=== PATIENT | male | born 1980 | race Caucasian/White ===

== ENCOUNTER 2016-07-08 10:38 | Emergency (ER) | payer OTHER ==
[~2016-07-08] VITALS: Ht 170.2 cm; Wt 66.7 kg
[2016-07-08 10:41] VITALS: BP 130/70
--- NOTE | 2016-07-08 11:03 | NUR ---
Patient taken from ED lobby to XRAY via wheelchair by tech.
--- NOTE | 2016-07-08 11:38 | NUR ---
Patient ambulated to [facility]2 to be evaluated as fast track by Dr. Howard.
--- NOTE | 2016-07-08 11:52 | NUR ---
Dr. Howard evaluating patient in OF2.
--- NOTE | 2016-07-08 11:55 | NUR ---
PATIENT COMFORTABLE SITTING ON THE CHAIR O.F
--- NOTE | 2016-07-08 12:05 | NUR ---
EKG completed by tech in triage room.
--- NOTE | 2016-07-08 12:12 | NUR ---
Dr. Howard re-evaluating patient at bedside.
--- NOTE | 2016-07-08 12:15 | NUR ---
DR. BENSON TALKING TO PATIENT REGARDING RESULTS OF CXR AND D/C INSTRUCTIONS.
[2016-07-08 12:30] VITALS: BP 118/73
--- NOTE | 2016-07-08 12:30 | NUR ---
Patient discharged with v/s stable. Written and verbal after care instructions given and explained. Patient verbalized understanding. Ambulatory with steady gait. All questions addressed prior to discharge. Advised to follow up with PMD.
== END 2016-07-08 12:30 | disposition home or self-care (01) ==
LOC: MED 10:38
DX: R59.1 Generalized enlarged lymph nodes (principal); R07.89 Other chest pain; F41.9 Anxiety disorder, unspecified; F17.210 Nicotine dependence, cigarettes, uncomplicated

== ENCOUNTER 2016-08-30 14:52 | Emergency (ER) | payer OTHER ==
[~2016-08-30] VITALS: Ht 170.2 cm; Wt 67.2 kg
[2016-08-30 15:07] VITALS: BP 129/49
--- NOTE | 2016-08-30 19:34 | NUR ---
PT TAKEN TO BED 8
--- NOTE | 2016-08-30 19:36 | NUR ---
35 Y/O M W/C/O PLANTAR PAIN X 1 MONTH, CLEAN APPEARING WOUNDS, NO DRAINAGE. PT STATES WAS TESTED FOR DM RECENTLY BUT WAS TOLD BY PMD RESULTS WERE NORMAL. PT HAS A COPY OF RESULTS. EUGENIE LOMAX NOTIFIED.
--- NOTE | 2016-08-30 20:00 | NUR ---
PT RESTING IN BED AWATING FOR MD, NO S/S OF DISTRESS NOTED AT THE MOMENT.
--- NOTE | 2016-08-30 20:23 | NUR ---
Dr. Rainey evaluating patient at bedside.
[2016-08-30 20:55] VITALS: BP 110/67
--- NOTE | 2016-08-30 20:55 | NUR ---
Patient discharged with v/s stable. Written and verbal after care instructions given and explained. Patient alert, oriented and verbalized understanding of instructions. Ambulatory with to car. All questions addressed prior to discharge. ID band removed. Patient advised to follow up with PMD IN 1 WK OR RETURN TO ER IF CONDITION WORSENS. Rx of MOTRIN given. Patient educated on indication of medication including possible reaction and side effects. Opportunity to ask questions provided and answered.
== END 2016-08-30 20:55 | disposition home or self-care (01) ==
LOC: MED 14:52
DX: M79.671 Pain in right foot (principal); M79.672 Pain in left foot; L40.9 Psoriasis, unspecified
CPT/HCPCS: 73630; 99284

== ENCOUNTER 2018-01-22 18:56 | Emergency (ER) | payer OTHER ==
[~2018-01-22] VITALS: Ht 170.2 cm; Wt 69.9 kg
[2018-01-22 19:05] VITALS: BP 134/73
[2018-01-22 21:04] VITALS: BP 123/71
== END 2018-01-22 21:03 | disposition home or self-care (01) ==
LOC: MED 18:56
DX: M25.661 Stiffness of right knee, not elsewhere classified (principal); M25.562 Pain in left knee
CPT/HCPCS: 99282

== ENCOUNTER 2021-02-24 16:23 | Emergency (ER) | payer OTHER ==
[~2021-02-24] VITALS: Ht 170.2 cm; Wt 71.4 kg
[2021-02-24 16:29] VITALS: BP 160/81
[2021-02-24 17:53] LABS: BASOPHILS # (AUTO) 0.1 K/uL (0.00-0.22); BASOPHILS % (AUTO) 0.7 % (0.0-2.0); EOSINOPHILS # (AUTO) 0.1 K/uL (0-0.4); HEMATOCRIT 43.8 % (36-52); HEMOGLOBIN 15.2 g/dL (12.0-18.0); LYMPHOCYTES # (AUTO) 2.5 K/uL (2.0-11.5); LYMPHOCYTES % (AUTO) 26.1 % (20.5-51.1); MEAN CORPUSCULAR HEMOGLOBIN 31 pg (27-31); MEAN CORPUSCULAR HGB CONC 35 g/dL (33-37); MEAN CORPUSCULAR VOLUME 89.5 fL (80-94); MONOCYTES # (AUTO) 0.9 K/uL (0.8-1.0); MONOCYTES % (AUTO) 9.5 % (1.7-9.3); NEUTROPHILS % (AUTO) 62.7 % (42.2-75.2); PLATELET COUNT (AUTO) 255 K/uL (140-450); RED CELL DISTRIBUTION WIDTH 12.2 % (11.6-13.7); WHITE BLOOD COUNT (AUTO) 9.5 K/uL (4.8-10.8)
[2021-02-24 18:15] LABS: ANION GAP 6.6 (8-16); CARBON DIOXIDE 30.2 mmol/L (21-32); CREATININE 0.9 mg/dL (0.6-1.3); POTASSIUM 3.8 mmol/L (3.5-5.1)
--- NOTE | 2021-02-24 18:59 | NUR ---
BIB SELF C/O 10 RIGHT CHEST PAIN S/P INJURY X 1 WEEK.
[2021-02-24 19:01] VITALS: BP 140/80
== END 2021-02-24 19:00 | disposition home or self-care (01) ==
LOC: MED 16:23
DX: R07.89 Other chest pain (principal); F12.90 Cannabis use, unspecified, uncomplicated
CPT/HCPCS: 36415; 71046; 80048; 84484; 85025; 93005; 99285

== ENCOUNTER 2021-09-05 13:58 | Emergency (ER) | payer OTHER ==
[~2021-09-05] VITALS: Ht 170.2 cm; Wt 70.4 kg
[2021-09-05 14:15] VITALS: BP 135/77
--- NOTE | 2021-09-05 14:20 | NUR ---
CESAR INMAN IN TRIAGE FOR ASSESSMENT
--- NOTE | 2021-09-05 14:21 | NUR ---
AMBULATED TO BATHROOM WITH STEADY GAIT
--- NOTE | 2021-09-05 15:15 | NUR ---
PT AMBULATED TO BED 03.
[2021-09-05] MEDS ORDERED: IBUP-1842 PO (15:39)
--- NOTE | 2021-09-05 15:42 | NUR ---
40 Y/O MALE C/O DIFFICULTY URINATION, URGENCY AND LOW BACK PAIN X 5DAYS. DENIES ANY FEVER. STATES STOMACH FEELS "BLOATED" NKA PMH: BPH RX: TAMSULIN
--- NOTE | 2021-09-05 15:45 | NUR ---
Patient discharged with v/s stable. Written and verbal after care instructions given and explained. Patient alert, oriented and verbalized understanding of instructions. Ambulatory with steady gait. All questions addressed prior to discharge. ID band removed. Patient advised to follow up with PMD. Rx of IBUPROFEN given. Opportunity to ask questions provided and answered.
--- NOTE | 2021-09-05 15:46 | NUR ---
The patient's care was reviewed and supervised by Lexy Jay RN.
[2021-09-05 16:54] LABS: APPEARANCE,URINE CLEAR (CLEAR); BILIRUBIN,URINE NEGATIVE (NEGATIVE); BLOOD, URINE NEGATIVE (NEGATIVE); COLOR,URINE YELLOW (YELLOW); LEUKOCYTE ESTERASE ,URINE NEGATIVE (NEGATIVE); NITRITE, URINE NEGATIVE (NEGATIVE); UGLUCOSE NEGATIVE (NEGATIVE)
== END 2021-09-05 15:45 | disposition home or self-care (01) ==
LOC: MED 13:58
DX: S39.012A Strain of muscle, fascia and tendon of lower back, initial encounter (principal); X58.XXXA Exposure to other specified factors, initial encounter; Y93.89 Activity, other specified; Y92.89 Other specified places as the place of occurrence of the external cause; Y99.8 Other external cause status
CPT/HCPCS: 81002; 81003; 87086; 99283; 99284

== ENCOUNTER 2021-09-06 09:15 | Emergency (ER) | payer OTHER ==
[~2021-09-06] VITALS: Ht 170.2 cm; Wt 70.8 kg
[~2021-09-06 09:15] MED LIST: IBUP-1842 PO
[2021-09-06 09:23] VITALS: BP 145/70
--- NOTE | 2021-09-06 09:28 | NUR ---
Patient ambulated to bed 7.
--- NOTE | 2021-09-06 09:53 | NUR ---
40 y/o male bib self with c/o mid back pain. Patient was seen yesterday here in the ER. Patient was diagnosed with muscle strain. Patient reports he does have a diagnosis of enlarged prostate and is currently taking medication. Denies any SOB, fever or pain while urination. Patient does report a slow stream while urinating. Medical History: Enlarged prostate Medication: Tamulosin NKDA
--- NOTE | 2021-09-06 10:09 | NUR ---
Dr. Deluca evaluating patient at bedside.
--- NOTE | 2021-09-06 10:55 | NUR ---
Patient was taken to imaging via [facility].
--- NOTE | 2021-09-06 11:03 | NUR ---
Patient returned from imaging.
[2021-09-06 12:21] VITALS: BP 118/71
--- NOTE | 2021-09-06 12:21 | NUR ---
Patient discharged with v/s stable. Written and verbal after care instructions given. Patient verbalized understanding. Ambulatory with steady gait. All questions addressed prior to discharge. Advised to follow up with PMD.
--- NOTE | 2021-09-06 12:22 | NUR ---
The patient's care was reviewed and supervised by Lexy Jay RN.
[2021-09-06 21:07] LABS: APPEARANCE,URINE CLEAR (CLEAR); BILIRUBIN,URINE NEGATIVE (NEGATIVE); BLOOD, URINE NEGATIVE (NEGATIVE); COLOR,URINE YELLOW (YELLOW); LEUKOCYTE ESTERASE ,URINE NEGATIVE (NEGATIVE); NITRITE, URINE NEGATIVE (NEGATIVE); PH,URINE 6.5 (5.0-9.0); UGLUCOSE TRACE (NEGATIVE)
== END 2021-09-06 12:21 | disposition home or self-care (01) ==
LOC: MED 09:15
DX: S39.012A Strain of muscle, fascia and tendon of lower back, initial encounter (principal); X58.XXXA Exposure to other specified factors, initial encounter; Y93.89 Activity, other specified; Y92.89 Other specified places as the place of occurrence of the external cause; Y99.8 Other external cause status
CPT/HCPCS: 81003; 99284

== ENCOUNTER 2022-03-01 11:00 | Emergency (ER) | payer OTHER ==
[~2022-03-01] VITALS: Ht 170.2 cm; Wt 3.6 kg
[2022-03-01 11:09] VITALS: BP 144/75
--- NOTE | 2022-03-01 11:54 | NUR ---
PATOENT AMBULATED TO BED 9.
--- NOTE | 2022-03-01 12:00 | NUR ---
DR. AREVALO EVALUATING PATIENT AT BEDSIDE.
--- NOTE | 2022-03-01 12:00 | NUR ---
DR AREVALO AT BEDSIDE FOR EVAL
--- NOTE | 2022-03-01 12:00 | NUR ---
41 Y/O MALE BIB SELF C/O CHEST PAIN AFTER "CHASING CHICKENS AND OVEREXTENDING ARM"X6DAYS, PER PT HE FELT A "POP" IN HIS LEFT RIB AREA. DENIES ANY SOB, ABD PAIN. NKA PMH: DENIES
--- NOTE | 2022-03-01 13:17 | NUR ---
X-Ray at bedside.
[2022-03-01] MEDS ORDERED: LID5T TP (13:43)
[2022-03-01 13:51] VITALS: BP 132/52
--- NOTE | 2022-03-01 13:52 | NUR ---
Patient discharged with v/s stable. Written and verbal after care instructions ABOUT RIB CONTUSION given and explained. Patient alert, oriented and verbalized understanding of instructions. Ambulatory with steady gait. All questions addressed prior to discharge. ID band removed. Patient advised to follow up with PMD. Rx of LIDODERM 5% PATCH given. Patient educated on indication of medication including possible reaction and side effects. Opportunity to ask questions provided and answered.
== END 2022-03-01 13:52 | disposition home or self-care (01) ==
LOC: MED 11:00
DX: R07.89 Other chest pain (principal)
CPT/HCPCS: 71045; 93005; 99283; Q0092

== ENCOUNTER 2022-03-03 17:53 | Emergency (ER) | payer OTHER ==
[~2022-03-03] VITALS: Ht 172.7 cm; Wt 77.1 kg
[~2022-03-03 17:53] MED LIST changes: +LID5T TP
[2022-03-03 18:13] VITALS: BP 134/70
--- NOTE | 2022-03-03 19:08 | NUR ---
PT AMB TO BED 5.
--- NOTE | 2022-03-03 19:19 | NUR ---
Patient lying in bed, A/Ox4, chest rise and fall symmetrical, no s/s of distress.
[2022-03-03 20:20] VITALS: BP 134/70
--- NOTE | 2022-03-03 20:20 | NUR ---
D/C BY .Patient discharged with v/s stable. Written and verbal after care instructions given and explained. Patient verbalized understanding. Ambulatory with steady gait. All questions addressed prior to discharge. Advised to follow up with PMD.
== END 2022-03-03 20:20 | disposition home or self-care (01) ==
LOC: MED 17:53
DX: R07.89 Other chest pain (principal)
CPT/HCPCS: 93005; 99283

== ENCOUNTER 2022-03-10 14:32 | Emergency (ER) | payer OTHER ==
[~2022-03-10] VITALS: Ht 170.2 cm; Wt 69.4 kg
[2022-03-10 14:47] VITALS: BP 127/67
[2022-03-10 15:23] LABS: BASOPHILS # (AUTO) 0.1 K/uL (0.00-0.22); BASOPHILS % (AUTO) 0.6 % (0.0-2.0); EOSINOPHILS # (AUTO) 0.1 K/uL (0-0.4); EOSINOPHILS % (AUTO) 0.9 % (0.0-4.0); HEMATOCRIT 46.2 % (36-52); HEMOGLOBIN 15.8 g/dL (12.0-18.0); LYMPHOCYTES % (AUTO) 21.7 % (20.5-51.1); MEAN CORPUSCULAR HEMOGLOBIN 31 pg (27-31); MEAN CORPUSCULAR HGB CONC 34 g/dL (33-37); MEAN CORPUSCULAR VOLUME 90.9 fL (80-94); MONOCYTES # (AUTO) 0.8 K/uL (0.8-1.0); MONOCYTES % (AUTO) 8.7 % (1.7-9.3); NEUTROPHILS # (AUTO) 6.2 K/uL (1.8-7.7); NEUTROPHILS % (AUTO) 68.1 % (42.2-75.2); PLATELET COUNT (AUTO) 241 K/uL (140-450); RED BLOOD CELL COUNT(AUTO) 5.08 MIL/uL (4.20-6.10); RED CELL DISTRIBUTION WIDTH 12.4 % (11.6-13.7); WHITE BLOOD COUNT (AUTO) 9.1 K/uL (4.8-10.8)
[2022-03-10 15:31] LABS: ANION GAP 10.6 (8-16); CARBON DIOXIDE 30.6 mmol/L (21-32); CREATININE 0.9 mg/dL (0.6-1.3); POTASSIUM 4.2 mmol/L (3.5-5.1); TOTAL BILIRUBIN 0.3 mg/dL (0.0-1.0)
--- NOTE | 2022-03-10 16:15 | NUR ---
Patient discharged with v/s stable. Written and verbal after care instructions ABOUT CHEST WALL PAIN given and explained. Patient verbalized understanding. Ambulatory with steady gait. All questions addressed prior to discharge. Advised to follow up with PMD.
[2022-03-10 19:20] LABS: APPEARANCE,URINE CLEAR (CLEAR); BILIRUBIN,URINE NEGATIVE (NEGATIVE); BLOOD, URINE NEGATIVE (NEGATIVE); COLOR,URINE YELLOW (YELLOW); LEUKOCYTE ESTERASE ,URINE NEGATIVE (NEGATIVE); NITRITE, URINE NEGATIVE (NEGATIVE); UGLUCOSE NEGATIVE (NEGATIVE)
== END 2022-03-10 16:15 | disposition home or self-care (01) ==
LOC: MED 14:32
DX: R07.89 Other chest pain (principal); R10.13 Epigastric pain
CPT/HCPCS: 36415; 80053; 81003; 83690; 85025; 99283